=== PATIENT | female | born 1980 | race Caucasian/White ===

== ENCOUNTER 2016-09-15 19:41 | Emergency (ER) | payer MEDICAID ==
[~2016-09-15] VITALS: Ht 157.5 cm; Wt 55.8 kg
[2016-09-15 19:45] VITALS: Ht 157.5 cm; Wt 55.8 kg
[2016-09-15] MEDS ORDERED: IBUP-1542 PO (20:42)
--- NOTE | 2016-09-15 20:49 | ERD ---
ER Documentation Chief Complaint Date/Time DATE: 09/15/16 TIME: 20:43 Chief Complaint bilateral breast pain x 2 weeks HPI Patient is a 36-year-old female who presents to the emergency department with bilateral breast pain 2 weeks. Patient denies any nipple discharge or nipple bleeding. Patient denies any masses. Patient states that the pain is "pulsating" in nature. She denies any fevers, chills, nausea, vomiting, chest pain, shortness of breath or loss of consciousness. Patient does have a mammogram scheduled for October 02, 2016. Patient denies history of breast cancer in her family. She states her last menstrual period was on 09-01-16. ROS All systems reviewed and are negative except as per history of present illness. Medications Home Meds Active Scripts Ibuprofen* (Motrin*) 600 Mg Tab, 600 MG PO Q6, #30 TAB Prov:RED WILSON PA-C 09/15/16 Allergies Allergies: Coded Allergies: No Known Allergy (Verified Allergy, Unknown, 12/03/06) PMhx/Soc Medical and Surgical Hx: pt denies Medical Hx, pt denies Surgical Hx History of Surgery: No Hx Neurological Disorder: No Hx Respiratory Disorders: No Hx Cardiac Disorders: No Hx Psychiatric Problems: No Hx Miscellaneous Medical Probl: No Hx Alcohol Use: No Hx Substance Use: No Hx Tobacco Use: No Smoking Status: Never smoker FmHx Family History: No diabetes Physical Exam Vitals Vital Signs Date Time Temp Pulse Resp B/P Pulse Ox O2 Delivery O2 Flow Rate FiO2 09/15/16 19:45 98.3 71 20 121/73 100 Physical Exam GENERAL: Well-developed, well-nourished female. Appears in no acute distress. HEAD: Normocephalic, atraumatic. EYES: Pupils are equally reactive bilaterally. EOMs grossly intact. No conjunctival erythema. ENT: Moist mucous membranes. No uvula deviation. No kissing tonsils. NECK: Supple. No meningismus. Normal range of motion of the neck. LUNG: Clear to auscultation bilaterally. No rhonchi, wheezing, rales or coarse breath sounds. BREASTS: No obvious masses palpated in all 4 quadrants bilaterally. Diffusely tender to palpation in all quadrants bilaterally. No nipple discharge or bleeding elicited. No swollen lymph nodes palpated in bilateral axillary regions. HEART: Regular rate and rhythm. No murmurs, rubs or gallops. BACK: No midline tenderness. EXTREMITIES: Equal pulses bilaterally. No peripheral clubbing, cyanosis or edema. No unilateral leg swelling. NEUROLOGIC: Alert and oriented. Moving all four extremities without any difficulty. Normal speech. Steady gait. SKIN: Normal color. Warm and dry. No rashes or lesions. Procedures/MDM MEDICAL DECISION MAKING: Is a 36-year-old female presents with bilateral breast pain 2 days. Patient denied any nipple discharge, nipple bleeding, or erythema of her breasts. Patient denied any chest pain, shortness of breath or loss of consciousness. Vital signs were reviewed. Patient is afebrile. Patient was not hypoxic. Patient was hemodynamically stable. Physical exam findings did not demonstrate any obvious masses or lumps.. Patient does have a mammogram scheduled for October 02, 2016. Urine test was negative. At this time, the patient's presentation is most consistent with breast pain likely due to fibrocystic breast changes. I explained to the patient I am unable to rule out breast cancer at this time even though my suspicion is low. Low suspicion for mastitis , ACS, pericarditis, arrhythmia, . PRESCRIPTION: Ibuprofen DISCHARGE: At this time, patient is stable for discharge and outpatient management. Patient was advised to complete mammogram as scheduled. Tad understands importance of conducting this examination and understand that I am unable to rule out any breast cancer at this time. I have instructed the patient to follow-up with his/her primary care physician in 1-2 days. I have discussed with the patient the possibility of needing to see a specialist for further workup and imaging studies if symptoms persist. I have instructed the patient to promptly return to the ER for any new or worsening symptoms including increased pain, fever, nausea, vomiting, weakness or LOC. The patient and/or family expressed understanding of and agreement with this plan. All questions were answered. Home care instructions were provided. Departure Diagnosis: Primary Impression: Breast pain Condition: Stable Patient Instructions: Breast Self-Exam (BSE) Referrals: COMM[facility] YOU HAVE RECEIVED A MEDICAL SCREENING EXAM AND THE RESULTS INDICATE THAT YOU DO NOT HAVE A CONDITION THAT REQUIRES URGENT TREATMENT IN THE EMERGENCY DEPARTMENT. FURTHER EVALUATION AND TREATMENT OF YOUR CONDITION CAN WAIT UNTIL YOU ARE SEEN IN YOUR DOCTORS OFFICE WITHIN THE NEXT 1-2 DAYS. IT IS YOUR RESPONSIBILITY TO MAKE AN APPOINTMENT FOR FOLOW-UP CARE. IF YOU HAVE A PRIMARY DOCTOR --you should call your primary doctor and schedule an appointment IF YOU DO NOT HAVE A PRIMARY DOCTOR YOU CAN CALL OUR PHYSICIAN REFERRAL HOTLINE AT IF YOU CAN NOT AFFORD TO SEE A PHYSICIAN YOU CAN CHOSE FROM THE FOLLOWING [facility] [address] [facility] [address] [facility] [address] [facility] [address] [facility] [address] [facility]. [facility] [address] [facility]. [facility] YOU HAVE RECEIVED A MEDICAL SCREENING EXAM AND THE RESULTS INDICATE THAT YOU DO NOT HAVE A CONDITION THAT REQUIRES URGENT TREATMENT IN THE EMERGENCY DEPARTMENT. FURTHER EVALUATION AND TREATMENT OF YOUR CONDITION CAN WAIT UNTIL YOU ARE SEEN IN YOUR DOCTORS OFFICE WITHIN THE NEXT 1-2 DAYS. IT IS YOUR RESPONSIBILITY TO MAKE AN APPOINTMENT FOR FOLOW-UP CARE. IF YOU HAVE A PRIMARY DOCTOR --you should call your primary doctor and schedule and appointment IF YOU DO NOT HAVE A PRIMARY DOCTOR YOU CAN CALL OUR PHYSICIAN REFERRAL HOTLINE AT . IF YOU CAN NOT AFFORD TO SEE A PHYSICIAN YOU CAN CHOSE FROM THE FOLLOWING [facility]: [facility] [address] [place] [address] [facility] [address] [place] [address] [facility] [address] [place] [address] Additional Instructions: Call your primary care doctor TOMORROW for an appointment during the next 1-2 days.See the doctor sooner or return here if your condition worsens before your appointment time. Get your mammogram as scheduled on October 02, 2016. Follow up with PCP. Unable to rule out breast care at this time. RED WILSON PA-C Sep 15, 2016 20:49
== END 2016-09-15 20:55 | disposition home or self-care (01) ==
LOC: FTE 19:41
DX: N64.4 Mastodynia (principal)
CPT/HCPCS: 99283

== ENCOUNTER 2017-07-04 08:23 | Emergency (ER) | END 2017-07-04 16:29 | disposition home or self-care (01) ==